=== PATIENT | female | born 1945 | race Caucasian/White ===

== ENCOUNTER 2016-12-15 12:11 | Emergency (ER) | payer MEDICARE, OTHER ==
[~2016-12-15] VITALS: Ht 162.6 cm; Wt 90.9 kg
[~2016-12-15 12:11] MED LIST: ACULAR 10 ML10 ML OD; COZAAR 25MG25 MG/TAB PO; FERROUS SULFAT325 M2 PO; OCUFLOX OPHTH DR5 ML OD; PRAVACHOL 40MG40 MG PO; PREDFORTE5ML OD; REFRESH OPTIVE10 M2 OP
[2016-12-15 12:12] VITALS: TEMP 97.2
[2016-12-15 12:36] LABS: BASO % 0.7 % (0.0-2.0); EOS # 0.1 (0.0-0.7); EOS % 0.9 % (0-4.0); GRAN # 4.4 (1.4-6.5); GRAN % 77.8 % (42.2-75.2); HEMATOCRIT 41.7 % (37.0-47.0); HEMOGLOBIN 13.4 g/dl (12.5-16.0); LYMPH # 0.7 (1.2-3.4); LYMPH % 12.5 % (20.0-51.0); MEAN CELL VOLUME 98 fl (80.0-100.0); MEAN CORPUSCULAR HEMOGLOBIN 32 pg (27.0-31.0); MEAN CORPUSCULAR HGB CONC 32 g/dl (33.0-37.0); MEAN PLATELET VOLUME 9.5 fl (7.4-10.4); MONO # 0.4 (0.1-0.6); MONO % 7.6 % (1.7-9.3); PLATELET COUNT 173 K/mm3 (130-400); RED BLOOD COUNT 4.24 M/mm3 (4.10-5.30); REDCELL DISTRIBUTION WIDTH-CV 12.9 % (11.5-14.5); WHITE BLOOD COUNT 5.7 K/mm3 (4.8-10.8)
[2016-12-15 12:47] LABS: ADJUSTED CALCIUM 10.9 mg/dL (8.4-10.2); ALANINE AMINOTRANSFERASE 25 U/L (9-52); ALBUMIN 4.4 gm/dL (3.5-5.0); ALKALINE PHOSPHATASE 77 U/L (50-136); ANION GAP 12 mmol/L (7-16); BLOOD UREA NITROGEN 18 mg/dL (7-17); CALCIUM 11.2 mg/dL (8.4-10.2); CARBON DIOXIDE 24 mmol/L (22-30); CHLORIDE 103 mmol/L (98-107); CREATININE, serum 0.85 mg/dL (0.52-1.25); GLUCOSE 113 mg/dL (74-106); INR 0.9 (0.8-3.0); POTASSIUM 4.6 mmol/L (3.4-5.0); PROTHROMBIN TIME 10.2 SECONDS (9.7-12.8); SODIUM 139 mmol/L (137-145); TOTAL PROTEIN 7.6 gm/dL (6.4-8.2)
[2016-12-15 12:50] LABS: PARTIAL THROMBOPLASTIN TIME 29.7 SECONDS (26.0-37.0)
[2016-12-15 13:04] LABS: TROPONIN-I < 0.012 ng/mL (0.000-0.034)
[2016-12-15] MEDS ORDERED: ANTIVERT 25MG25 MG PO (14:57)
[2016-12-15 15:00] VITALS: BP 135/70; PULSE 81
== END 2016-12-15 15:20 | disposition home or self-care (01) ==
LOC: COL.ER 12:11
PROVIDERS: Emergency Medicine
DX: R42 Dizziness and giddiness (principal); R11.0 Nausea; E78.5 Hyperlipidemia, unspecified; I10 Essential (primary) hypertension
CPT/HCPCS: J2405; J2765; J7030